=== PATIENT | male | born 1945 | race Caucasian/White ===

== ENCOUNTER 2020-03-18 07:31 | Day surgery (SDC) | payer MEDICARE, OTHER ==
--- NOTE | 2020-03-15 13:56 | HP ---
AMENDED REPORT: DATE OF SURGERY: 03/18/2020 HISTORY OF PRESENT ILLNESS: The patient presents in need of colonoscopy. He had a colonoscopy about 13 years ago and is unsure if there were polyps. He states that he had a brother with colon cancer. PAST MEDICAL HISTORY: Sinus allergies, hyperlipidemia, hypertension. PAST SURGICAL HISTORY: Hernia repair. Appendectomy. ALLERGIES: NKDA. MEDICATIONS: Verapamil, Pravastatin, Singulair, QVAR, Zyrtec, Proventil, mometasone, aspirin. FAMILY HISTORY: Heart disease, colon cancer. SOCIAL HISTORY: None. REVIEW OF SYSTEMS: CONSTITUTIONAL: Denies fever or chills. CHEST: Denies shortness of breath. CVS: Denies chest pain. ABDOMEN: Denies abdominal pain, nausea, vomiting, diarrhea, constipation or rectal bleeding. INTEGUMENTARY: Negative. PHYSICAL EXAMINATION: GENERAL: No acute distress. CHEST: Nonlabored. No shortness of breath. CVS: Regular rate and rhythm. ABDOMEN: Soft, nontender to palpation. EXTREMITIES: No edema. NEUROLOGIC: Alert. PSYCHIATRIC: Appropriate. IMPRESSION: The patient believes he has a history of colon polyps. PLAN: Colonoscopy with Dr. Zeb Blake. As dictated by Paulette Huerta NP.
[2020-03-18] MEDS ORDERED: Lactated Ringers 1,000 ML IV ONE (07:57)
[2020-03-18] MEDS ORDERED: Lactated Ringers 1,000 ML IV SCH (08:00)
[2020-03-18] MEDS ORDERED: DIPRIVAN 200 MG/20 ML IV ONE ×2 (10:00→10:20)
[2020-03-18 11:36] VITALS: BP 144/84; PULSE 63; O2SAT 97
--- NOTE | 2020-03-18 13:30 | OP ---
SURGERY DATE/TIME: 03/18/2020 1006 PREOPERATIVE DIAGNOSIS: Follow up polyp. POSTOPERATIVE DIAGNOSES: 1) One small polyp mid sigmoid 4 mm. 2) Moderate internal hemorrhoids. PROCEDURE: Colonoscopy complete to cecum, hot polypectomy x1. SURGEON: Zeb Blake M.D. ANESTHESIA: MAC. COMPLICATIONS: None. CONDITION: Stable. INDICATION: A patient requiring evaluation. DESCRIPTION OF PROCEDURE: Taken to endoscopy. MAC sedation provided. Anal digital examination satisfactory. Scope introduced and scope advanced to the cecum. Fairly redundant right side of colon. Despite this the base of cecum, ileocecal valve and appendiceal orifice was all normal. Ascending, hepatic, transverse, splenic, descending scant diverticulosis. Rectum moderate internal hemorrhoids. In the mid sigmoid at 22 cm a small 4 mm polyp was taken with hot biopsy forceps to extinction. He does have a previous history of polyps also. We will put him down for five year follow up. Given routine instructions. The bowel prep was excellent. His path report can be called for.
== END 2020-03-18 11:35 | disposition home or self-care (01) ==
LOC: SDC 07:31
PROVIDERS: ATTEND Surgery
DX: Z09 Encounter for follow-up examination after completed treatment for conditions other than malignant neoplasm (principal); Z80.0 Family history of malignant neoplasm of digestive organs; K63.5 Polyp of colon; K64.8 Other hemorrhoids
CPT/HCPCS: 99100; J2704